=== PATIENT | male | born 1945 | race Caucasian/White ===

== ENCOUNTER → 2016-10-08 | Outpatient (CLI) | payer MEDICARE, OTHER ==
[~2016-10-08] MED LIST: BLOO1STR MC; BUDE10.2 IH; DUTA0.5C PO; INSU100V8 SQ; PHEN37.53 PO; PROVENTIL HFA6.7 GM IH; SILD100T PO; TEST1.25 TD; VALIUM10 MG PO; inhaler; metformin; pravastatin; valium; vitamin d
--- NOTE | 2016-10-08 09:51 | RAD ---
2 indication lung malignancy. Follow-up. Noncontrast imaging through the chest was performed and is compared to an exam one year ago. Imaging through the upper abdomen is unremarkable. Gastric lap band is noted. The mediastinum appears unremarkable and unchanged. Small opacity at the right lung apex, likely reflecting scar, is unchanged. Nonsolid parenchymal opacity in the right lower lobe persists and appears slightly larger than on the previous exam. It also appears larger when compared to an examination in 2012. Slowly growing adenocarcinoma is not excluded. IMPRESSION: Nonsolid parenchymal opacity in the right lower lobe persists and appears slightly larger than on previous exams. A slow-growing neoplasm is not excluded. PQRS Compliance Statement: One or more of the following individualized dose reduction techniques were utilized for this examination: 1. Automated exposure control 2. Adjustment of the mA and/or kV according to patient size 3. Use of iterative reconstruction technique
== END | disposition home or self-care (01) ==
LOC: CT 11:39
PROVIDERS: ATTEND Internal Medicine Hematology & Oncology
DX: C34.31 Malignant neoplasm of lower lobe, right bronchus or lung (principal)
CPT/HCPCS: 71250

== ENCOUNTER 2016-11-03 06:47 | Outpatient (CLI) | payer MEDICARE, OTHER ==
[~2016-11-03] VITALS: Ht 172.7 cm; Wt 104.3 kg
[2016-11-03] VITALS (12 sets, daily range): BP systolic 110–141; BP diastolic 48–77
[2016-11-03] MEDS ORDERED: SILD20TA2 PO (07:14)
[2016-11-03] MEDS ORDERED: ASPI81TA2 PO (07:14)
[2016-11-03] MEDS ORDERED: INSU100C4 SQ (07:14)
[2016-11-03] MEDS ORDERED: BUDE10.2 IH (07:14)
[2016-11-03] MEDS ORDERED: LISI-338 PO (07:14)
[2016-11-03] MEDS ORDERED: PRAV80TA2 PO (07:14)
[2016-11-03] MEDS ORDERED: METF-620 PO (07:14)
[2016-11-03] MEDS ORDERED: TERA5CAP3 PO (07:14)
[2016-11-03] MEDS ORDERED: DIAZEPAM10 MG PO (07:14)
[2016-11-03 07:42] LABS: BASO # 0.1 x10^3/uL (0.0-0.2); BASO % 1 % (0-3); EOS % 3 % (0-3); HEMATOCRIT 36.5 % (39.0-53.0); HEMOGLOBIN 12.2 g/dL (13.0-17.5); LYMPH # 2.1 x10^3/uL (1.0-4.8); LYMPH % 31 % (24-48); MEAN CORPUSCULAR HEMOGLOBIN 31 pg (25-35); MEAN CORPUSCULAR HGB CONC 34 g/dL (31-37); MEAN CORPUSCULAR VOLUME 91 fL (79-100); MONO % 9 % (0-9); NEUT % 56 % (31-73); PLATELET COUNT 170 x10^3/uL (140-400); RED BLOOD COUNT 3.99 x10^6/uL (4.30-5.70); RED CELL DISTRIBUTION WIDTH 13.9 % (11.5-14.5); WHITE BLOOD COUNT 6.8 x10^3/uL (4.0-11.0)
[2016-11-03 07:46] LABS: PROTHROMBIN TIME PATIENT 12.4 SEC (11.7-14.0)
[2016-11-03] MEDS ORDERED: LIDOCAINE 1% / SOD BICARB 8.4% 20 ML VIAL. IJ ONE ×2 (08:03→08:45)
[2016-11-03] MEDS ORDERED: MIDAZOLAM HCL/PF 2 MG/2 ML VIAL. ONE (08:35)
[2016-11-03] MEDS ORDERED: fentaNYL PF VIAL 100 MCG/2 ML VIAL ONE (08:35)
[2016-11-03] MEDS ORDERED: fentaNYL PF VIAL 100 MCG/2 ML VIAL IV ONE (08:45)
[2016-11-03] MEDS ORDERED: MIDAZOLAM HCL/PF 2 MG/2 ML VIAL. IV ONE (08:45)
--- NOTE | 2016-11-03 09:19 | PDOC ---
MODERATE SEDATION ASSESSMENT RISKS/ALTERNATIVES Risks/Alternatives Risks and alternatives of this type of sedation and procedure discussed with: RISK/ALTERNATIVES: Patient H & P ON CHART H & P H & P on chart and reviewed for co-morbid conditions and appropriate labs. H&P ON CHART: Yes STATUS PREG STATUS ASSESSED: N/A MEDS/ALLERGIES REVIEWED Meds/Allergies Reviewed Medications and Allergies including time and route of recently administered narcotics and sedatives. MEDS/ALLERGIES REVIEWED: Yes ASA RATING ASA RATING: II AIRWAY ASSESSMENT Airway Assessment Airway patency, oral function limitations, presence of caps, crowns, dentures, partials, and ability to extend neck assessed. AIRWAY ASSESSMENT: Yes MALLAMPATI SCORE MALLAMPATI SCORE: II PRE-SEDATION ASSESSMENT PRE-SEDATION ASSESSMENT: Yes GREG ANDRADE MD November 03, 2016 09:19
--- NOTE | 2016-11-03 09:21 | PDOC1 ---
History and Physical Date of Procedure Date of Admission 11/03/[address] guided right lung bx Indication Indication 71 YO male previous smoker, s/p left lower lobectomy for lung cancer in 2007. Now with very slowly growing right lower lobe ground glass opacity, raising ? of bronchoalveolar carcinoma. Past Medical History Past Medical History See Nursing Pre Procedure PMH Past Surgical History Past Surgical History See Nursing Pre procedure PSH Current Medications Current Medications Current Medications Lidocaine/Sodium Bicarbonate (Buffered Lidocaine 1%) 20 ml STK-MED ONCE IJ ; Start 11/03/16 at 08:03; Stop 11/03/16 at 08:04; Status DC Fentanyl Citrate (Fentanyl 2ml Vial) 100 mcg STK-MED ONCE .ROUTE ; Start at 08:35; Stop 11/03/16 at 08:36; Status DC Midazolam HCl (Versed) 2 mg STK-MED ONCE .ROUTE ; Start 11/03/16 at 08:35; Stop 11/03/16 at 08:36; Status DC Lidocaine/Sodium Bicarbonate (Buffered Lidocaine 1%) 20 ml 1X ONCE IJ Last administered on 11/03/16 09:07; Start 11/03/16 at 08:45; Stop 11/03/16 at 08:46 ; Status DC Midazolam HCl (Versed) 2 mg 1X ONCE IV Last administered on 11/03/16 09:07; Start 11/03/16 at 08:45; Stop 11/03/16 at 08:46; Status DC Fentanyl Citrate (Fentanyl 2ml Vial) 100 mcg 1X ONCE IV Last administered on 09:07; Start 11/03/16 at 08:45; Stop 11/03/16 at 08:46; Status DC Active Scripts Active Reported Novolog (Insulin Aspart) 100 Unit/1 Ml Cartridge 20 Unit SQ TID Sildenafil (Sildenafil Citrate) 20 Mg Tablet 20 Mg PO TID Diazepam 10 Mg Tablet 10 Mg PO DAILY Lisinopril 5 Mg Tablet 1 Tab PO DAILY Aspirin 81 Mg Tab.chew 1 Tab PO DAILY Metformin Hcl 1,000 Mg Tablet 1,000 Mg PO DAILYWBKFT Terazosin Hcl 5 Mg Capsule 1 Cap PO QHS Symbicort 160-4.5 Mcg Inhaler (Budesonide/Formoterol Fumarate) 10.2 Gm Hfa.aer.ad 2 Puff IH BID Pravastatin Sodium 80 Mg Tablet 1 Tab PO DAILY Phentermine Hcl 37.5 Mg Capsule 1 Cap PO DAILYWBKFT Valium (Diazepam) 10 Mg Tablet 1 Tab PO QHS Contour Next (Blood Sugar Diagnostic) 1 Each Strip 1 Each MC Androgel (Testosterone) 1.25 Gm Gel.packet 1.25 Gm TD Lantus (Insulin Glargine,Hum.rec.anlog) 100 Unit/1 Ml Vial 135 Unit SQ BID [vitamin d] [metformin] DAILY Allergies Allergies: Coded Allergies: simvastatin (Verified Adverse Reaction, Intermediate, Nausea, 09/18/13) Physical Exam Vital Signs Vital Signs Date Time Temp Pulse Resp B/P (MAP) Pulse Ox O2 Delivery O2 Flow Rate FiO2 11/03/16 09:16 62 16 95 Room Air 11/03/16 09:00 2.0 11/03/16 07:45 97.6 141/67 (91) 97.6 Lungs: Clear to auscultation Heart: Regular rate Psych/Mental Status: Mental status NL Diagnostic Data/Imaging Images PMC CT chest studies from 10/13/15 and 10/08/16 reviewed. Slowly growing right lower lobe GGO confirmed. Assessment Assessment 71 YO male prior smoker, who is s/p left lower lobectomy for lung cancer in 2007. Now with slowly growing right lower lobe GGO, raising ? of JERAMIE. Problems: Plan Plan CT guided right lung biopsy GREG ANDRADE MD November 03, 2016 09:20
--- NOTE | 2016-11-03 09:35 | PDOC ---
Exam Vp Product Management Vp Product Management Girish Analytics Analyst Analytics Analyst B Cates Pre-Procedure Diagnosis Pre-Procedure Diagnosis 71 YO male previous smoker, who is s/p left lower lobectomy for lung cancer in 2007. Now with very slowly growing right lower lobe GGO, raising ? of JERAMIE. Post-Procedure Diagnosis Post-Procedure Diagnosis Same Procedure Performed Procedure Performed CT guided bx rt lower lobe GGO Type of Anesthesia Type of Anesthesia Local + Mod sedation Estimated Blood Loss EBL: Trace Specimens Specimans 3 small 18G core bx fragments to path in formalin Condition of Patient Condition of Patient Stable. Completion CT images revealed tiny asymptomatic immediate post bx Ptx. Disposition Disposition From CT/IR to CVOBS. 1 hr post bx Insp/exp CXR requested to confirm or exclude progression of Ptx. Home post 2 hr recovery from CVOBS if no Ptx progression or other problem. Chest tube insertion with admission if Ptx progresses. F/U with Dr Porter. Full report to follow. GREG ANDRADE MD November 03, 2016 09:35
--- NOTE | 2016-11-03 10:49 | RAD ---
Indication status post right lung biopsy. Inspiratory and expiratory films of the chest were obtained approximately 1 hour following a right lung biopsy. Note is made that the CT demonstrated a minute right pneumothorax. There is mild cardiomegaly. There is no congestive heart failure. No appreciable right pneumothorax is seen on plain film. IMPRESSION: No appreciable right pneumothorax apparent on plain films.
--- NOTE | 2016-11-04 06:20 | RAD ---
CT-guided right lung biopsy Indication: 71-year-old male with history of left lower lobectomy for lung cancer. He has a very slowly growing groundglass opacity within right lower lobe, raising the question of bronchoalveolar carcinoma. CT-guided right lung biopsy has been requested by pulmonary. Anesthesia: 36 minutes moderate sedation was provided utilizing a total of 2 mg Versed and 50 mcg fentanyl, IV. The patient was appropriately monitored by a qualified independent observer throughout the time of moderate sedation. Consent: The procedure was explained in its entirety to the patient and/or the patient's designated volunteer patient representative by a member of the treatment team. This included a discussion of risks and benefits and acceptable alternatives to the procedure, as well as expected consequences of no treatment at all. Discussion of risks included, but was not limited to, those that are most frequent and those that are rare, but possibly severe or life-threatening, as well as the possibility of unforeseen complications. Procedure: Informed consent was obtained from the patient. He was placed prone on the CT scanner. Preliminary noncontrast CT images confirmed the presence of a poorly defined right lower lobe groundglass opacity, which has shown slow interval increase in size 10/13/2015. A right posterior skin site suitable for CT-guided lung biopsy was selected and marked. That area was prepped and draped in the usual sterile fashion. Moderate sedation was provided with IV Versed and fentanyl. Using aseptic technique, local anesthesia, and CT guidance, a 17-gauge guide needle was successfully advanced into posterior aspect of the right lower lobe groundglass opacity. A total of 3 18-gauge core biopsies were attempted. The biopsies were productive of only small fragments of tissue, which were submitted in formalin to pathology. The biopsy guide needle was removed and a sterile dressing was applied. Patient tolerated the procedure well. However, completion CT images revealed a very tiny right pneumothorax. A 1 hour post biopsy aspiration/expiration chest x-ray will be obtained in CV observation to confirm or exclude progression in pneumothorax, prior to patient discharge versus chest tube insertion with admission. Impression: 1. CT-guided right lung biopsy was productive of only small fragments of tissue, which may prove nondiagnostic. 2. Tiny immediate postbiopsy pneumothorax. 1 hour postbiopsy inspiration/expiration chest x-ray was requested in CV observation during patient recovery. PQRS Compliance Statement: One or more of the following individualized dose reduction techniques was utilized for this procedure: 1. Automated exposure control. 2. Adjustment of MA and/or KV according to patient size. 3. Iterative reconstruction technique.
--- NOTE | 2016-11-08 17:31 | PATHOLOGY ---
PATHOLOGY REPORT * * * * * * * * FINAL DIAGNOSIS: Lung tissue, right lung CT-guided biopsy: - Pulmonary scleroelastotic scar with focal atypical mucinous epithelial proliferation. See comment. COMMENT: Sections of the right lung CT-guided biopsy reveal several segments of lung tissue. The lung tissue shows extensive interstitial sclerosis and elastosis with focal chronic inflammation. There are several small foci of atypical mucinous epithelial proliferation having an acinar and lepidic architecture. This atypical epithelial proliferation consists of mucinous columnar epithelial cells having basally situated, mildly enlarged hyperchromatic nuclei. The differential diagnosis includes atypical adenomatous hyperplasia and mucinous adenocarcinoma with lepidic growth pattern. A definitive diagnosis cannot be rendered based on this small sampling of a larger lesion. Correlate with clinical and radiographic findings. The case is also examined by Dr. Titus and Dr. Shaikh, both of whom concur with the diagnosis. (JPM::csd; d/t: 11/05/16) REPORT ELECTRONICALLY SIGNED BY: Babatunde Corcoran M.D. DATE/TIME: 11/08/2016 17:30 * * * * * * * * GROSS PATHOLOGY: Received in formalin labeled "Jason Storey, right lung biopsy," are three distinct needle cores of rhodes soft tissue ranging from 0.7 to 1.3 cm in length, which are submitted entirely in cassette A1. (CAA; 11/04/2016) INITIAL CPT CODE(S): A; 88111 Professional services performed [place] [address] Technical services performed by [email or web address] at [address] [place] [address], [facility] [address], [place] [address]. SPECIMEN(S) RECEIVED: A.Right lung biopsy CLINICAL HISTORY: Slowly growing right lung GGO, history of left lung cancer s/p lobectomy, ? JERAMIE PATIENT: JASON STOREY /AGE: 801/23/1945 (Age: 71) PATIENT #: [id number] ALT CASE #: SPECIMEN COLLECTION DATE: 11/03/2016 SPECIMEN RECEIVED DATE: 11/03/2016 [facility] - [id number] [place] [address] - PHONE: [phone] * * * END OF REPORT * * *
== END 2016-11-03 11:16 | disposition home or self-care (01) ==
LOC: INTRAD 06:47
PROVIDERS: ATTEND Internal Medicine Critical Care Medicine
DX: J84.10 Pulmonary fibrosis, unspecified (principal); J44.9 Chronic obstructive pulmonary disease, unspecified; Z85.118 Personal history of other malignant neoplasm of bronchus and lung; I51.7 Cardiomegaly; E78.00 Pure hypercholesterolemia, unspecified; E11.9 Type 2 diabetes mellitus without complications; Z88.8 Allergy status to other drugs, medicaments and biological substances
CPT/HCPCS: 32405; 36415; 71035; 77012; 85027; 85610; 88305; C1892; J2250; J3010

== ENCOUNTER → 2016-11-08 | Outpatient (CLI) | payer MEDICARE, OTHER ==
[2016-11-03 10:46] VITALS: BP 113/69
[~2016-11-08] MED LIST changes: +ASPI81TA2 PO; +DIAZEPAM10 MG PO; +INSU100C4 SQ; +LISI-338 PO; +METF-620 PO; +PRAV80TA2 PO; +SILD20TA2 PO; +TERA5CAP3 PO
--- NOTE | 2016-11-09 12:50 | RESP ---
DATE OF SERVICE: The patient underwent full pulmonary function testing dated 11/08/2016. The FEV1 to FVC ratio was 100%, FEV1 was 58% predicted at 1.73 liters, FVC was 58% predicted at 2.35 liters. There was no significant bronchodilator response. Total lung capacity was 116% of predicted at 7.54 liters. Diffusion capacity was slightly decreased. IMPRESSION: 1. No significant evidence of obstructive or restrictive disorder. 2. Slight decrease in diffusion capacity. 3. No significant bronchodilator effect. AZALEA FLOYD MD DR: JESSE/eren JOB#: [id number] / [id number] ABDON Skinner MD, AMAN MD
== END ==
LOC: PF 11:02
PROVIDERS: ATTEND Internal Medicine Critical Care Medicine
DX: R94.2 Abnormal results of pulmonary function studies (principal)
CPT/HCPCS: 94060; 94729

== ENCOUNTER → 2016-11-25 | Outpatient (CLI) | payer MEDICARE, OTHER ==
[2016-11-03 10:46] VITALS: BP 113/69
[~2016-11-25] MED LIST changes: +ASPI-630 PO; -ASPI81TA2 PO
--- NOTE | 2016-11-25 12:41 | CARD ---
APPROVED REPORT EXAM: Two-dimensional and M-mode echocardiogram with Doppler and color Doppler. Other Information Quality : Average Rhythm : NSR INDICATION Pre-Op 2D DIMENSIONS Left Atrium(2D)3.9 (1.6-4.0cm)IVSd1.3 (0.7-1.1cm) Aortic Root(2D)3.2 (2.0-3.7cm)LVDd3.2 (3.9-5.9cm) LVOT Diameter2.1 (1.8-2.4cm)PWd1.3 (0.7-1.1cm) LVDs2.4 (2.5-4.0cm)FS (%) 25.6 % SV21.1 mlLVEF(%)51.8 (>50%) Aortic Valve AoV Peak Marshall.143.6cm/sAoV VTI26.0cm AO Peak GR.8.2mmHgLVOT Peak Marshall.136.2cm/s LVOT VTI 23.53cmAO Mean GR.5mmHg TERESA (VMAX)3.36ds5ZNZ (VTI)3.24cm2 Mitral Valve MV E Pxjcjtek37.5cm/sMV DECEL [id number] MV A Rhwcdlgv168.7cm/sMV E Mean Gr.3mmHg MV ISH79ahZ/A Ratio0.7 MV A Tavbtbxr722tyESQ (PHT)3.98cm2 TDI E/Lateral E'9.8E/Medial E'12.9 Pulmonary Valve PV Peak Oempvzxm285.9cm/sPV Peak Grad.9mmHg RVOT VTI18.6cm Tricuspid Valve TR P. Dlehtsps220ni/sRAP PAMBFDVQ7rhNk TR Peak Gr.95taXiTIYY09gnTx LEFT VENTRICLE The left ventricle is normal size. There is borderline to mild concentric left ventricular hypertroph y. Left ventricle systolic function is normal. The Ejection Fraction is 55%. There is normal LV segme ntal wall motion. Tissue Doppler imaging reveals mild left ventricular diastolic dysfunction. Transmi tral Doppler flow pattern is Grade I-abnormal relaxation pattern. There is no ventricular septal defe ct visualized. RIGHT VENTRICLE The right ventricle is normal size. The right ventricular systolic function is normal. ATRIA The left atrium size is normal. The right atrium size is normal. The interatrial septum is intact wit h no evidence for an atrial septal defect or patent foramen ovale as noted on 2-D or Doppler imaging. AORTIC VALVE The aortic valve is mildly calcified. The aortic valve is trileaflet. Doppler and Color Flow revealed no significant aortic regurgitation. There is no significant aortic valvular stenosis. MITRAL VALVE Mitral annular calcification is borderline. There is no mitral valve stenosis. Doppler and Color Flow revealed no mitral valve regurgitation noted. TRICUSPID VALVE The tricuspid valve is normal in structure and function. Doppler and Color Flow revealed trace tricus pid regurgitation. The PA pressure was estimated at 32 mmHg. There is no tricuspid valve stenosis. PULMONIC VALVE The pulmonic valve is not well visualized. Doppler and Color Flow revealed no pulmonic valvular regur gitation. There is no pulmonic valvular stenosis. GREAT VESSELS The aortic root is normal in size. The IVC is normal in size and collapses >50% with inspiration. PERICARDIAL EFFUSION There is no evidence of significant pericardial effusion. Critical Notification Critical Value: No <Conclusion> Left ventricle systolic function is normal. The Ejection Fraction is 55%. Transmitral Doppler flow pattern is Grade I-abnormal relaxation pattern. Doppler and Color Flow revealed trace tricuspid regurgitation. The PA pressure was estimated at 32 mmHg. There is no evidence of significant pericardial effusion.
== END | disposition home or self-care (01) ==
LOC: ECHO 10:49
PROVIDERS: ATTEND Thoracic Surgery (Cardiothoracic Vascular Surgery)
DX: Z01.818 Encounter for other preprocedural examination (principal); I07.1 Rheumatic tricuspid insufficiency; R91.8 Other nonspecific abnormal finding of lung field
CPT/HCPCS: 93306

== ENCOUNTER → 2017-01-19 | Outpatient (CLI) | payer MEDICARE, OTHER ==
[2016-11-03 10:46] VITALS: BP 113/69
--- NOTE | 2017-01-19 10:20 | RAD ---
Chest radiograph 01/19/2017 at 1001 hours Indication: History of left lower lobe neoplasm. Comparison: CT chest 10/08/2016, chest radiograph 11/03/2016 Technique: Frontal and lateral views of the chest are provided. Findings: Cardiomediastinal silhouette is mildly shifted to the left, stable. There is volume loss in the left lung. Is normal aeration of the left upper lobe. Left diaphragm is mildly elevated, stable. There is minimal atelectasis and/or scarring at the left lung base. Strandy density in the right midlung may represent atelectasis. There is suggestion of minimal fluid or pleural thickening along the right lateral lung. No significant osseous abnormalities identified. No pulmonary vascular congestion or pneumothorax. Impression: 1. Volume loss in the left lung is likely postsurgical. There is associated elevation of the left hemidiaphragm and shift of mediastinum to the left, stable. 2. Strandy density in the right midlung which may represent atelectasis and/or scarring with suggestion of either pleural thickening or trace loculated fluid along the right lateral chest wall.
--- NOTE | 2017-01-19 15:35 | RAD ---
Ventilation/perfusion lung scan, 01/19/2017: History: Lung mass, preop evaluation The ventilation study was performed utilizing 27 mCi of xenon-133. There is decreased ventilation of the left lung. There is good washout of the xenon from both lungs. Perfusion imaging was performed utilizing 5.5 mCi of technetium 99m MAA. A similar pattern of activity is present in the lungs. No unmatched perfusion defects are seen. Quantitative analysis of the perfusion portion of the study demonstrates approximately 23% of the overall perfusion occurs on the left and 77% on the right. IMPRESSION: 1. Decreased ventilation and perfusion in the left lung apparently secondary to a previous partial left pneumonectomy. 2. No unmatched perfusion defects are seen. 3. Quantitative perfusion analysis demonstrates approximately 23% of the overall perfusion occurring on the left and 77% on the right.
== END | disposition home or self-care (01) ==
LOC: NM 09:24
PROVIDERS: ATTEND Thoracic Surgery (Cardiothoracic Vascular Surgery)
DX: Z01.818 Encounter for other preprocedural examination (principal); C34.32 Malignant neoplasm of lower lobe, left bronchus or lung
CPT/HCPCS: 71020; 78582; 96374; A9540; A9558

== ENCOUNTER → 2017-11-21 | Outpatient (CLI) | payer MEDICARE, OTHER ==
[2017-11-21] MEDS: GADOBUTROL 10 MMOL/10 ML VIAL IV (08:52)
== END | disposition home or self-care (01) ==
LOC: KCIC MRI 08:03
DX: K83.1 Obstruction of bile duct (principal); N28.1 Cyst of kidney, acquired
CPT/HCPCS: 74182; A9585

== ENCOUNTER 2018-01-09 08:24 | Outpatient (CLI) | payer MEDICARE, OTHER ==
[2018-01-09 09:09] LABS: ADD MAN DIFF? NO
[2018-01-09 09:11] LABS: BASO # 0.1 x10^3/uL (0.0-0.2); BASO % 1 % (0-3); EOS # 0.2 x10^3/uL (0.0-0.7); EOS % 3 % (0-3); HEMATOCRIT 39.1 % (39.0-53.0); HEMOGLOBIN 13.5 g/dL (13.0-17.5); LYMPH # 2.6 x10^3/uL (1.0-4.8); LYMPH % 34 % (24-48); MEAN CORPUSCULAR HEMOGLOBIN 32 pg (25-35); MEAN CORPUSCULAR HGB CONC 35 g/dL (31-37); MEAN CORPUSCULAR VOLUME 92 fL (79-100); MONO # 0.6 x10^3/uL (0.0-1.1); MONO % 8 % (0-9); NEUT # 4.2 x10^3uL (1.8-7.7); NEUT % 54 % (31-73); PLATELET COUNT 204 x10^3/uL (140-400); RED BLOOD COUNT 4.25 x10^6/uL (4.30-5.70); RED CELL DISTRIBUTION WIDTH 13.9 % (11.5-14.5); WHITE BLOOD COUNT 7.8 x10^3/uL (4.0-11.0)
[2018-01-09 09:21] LABS: INR 0.9 (0.8-1.1); PROTHROMBIN TIME PATIENT 12.1 SEC (11.7-14.0)
[2018-01-09] MEDS ORDERED: HEPARIN PF 500 UNIT/5 ML DISP.SYRIN. IV (09:45)
[2018-01-09] MEDS ORDERED: LIDOCAINE 1%/EPI 1:100,000 20 ML VIAL. (09:45)
[2018-01-09] MEDS ORDERED: fentaNYL PF VIAL 100 MCG/2 ML VIAL (09:47)
[2018-01-09] MEDS ORDERED: MIDAZOLAM HCL/PF 2 MG/2 ML VIAL. (09:47)
[2018-01-09] MEDS: LIDOCAINE 1%/EPI 1:100,000 20 ML VIAL. IJ (10:25)
[2018-01-09] MEDS: fentaNYL PF VIAL 100 MCG/2 ML VIAL IV (10:26)
[2018-01-09] MEDS: MIDAZOLAM HCL/PF 2 MG/2 ML VIAL. IV (10:26)
[2018-01-09] MEDS: HEPARIN PF 500 UNIT/5 ML DISP.SYRIN. IV (10:27)
[2018-01-09] MEDS ORDERED: ceFAZolin 2GM PREMIX 2 GM/50 ML BAG IV (11:00)
== END 2018-01-09 13:15 | disposition home or self-care (01) ==
LOC: INTRAD 08:24
DX: C25.9 Malignant neoplasm of pancreas, unspecified (principal); E78.00 Pure hypercholesterolemia, unspecified; I10 Essential (primary) hypertension; J44.9 Chronic obstructive pulmonary disease, unspecified; Z85.118 Personal history of other malignant neoplasm of bronchus and lung; E11.9 Type 2 diabetes mellitus without complications; Z79.4 Long term (current) use of insulin; Z79.899 Other long term (current) drug therapy; Z88.8 Allergy status to other drugs, medicaments and biological substances; Z98.890 Other specified postprocedural states; Z87.891 Personal history of nicotine dependence
CPT/HCPCS: 36415; 36561; 76937; 77001; 85025; 85610; 99152; 99153; A4215; C1751; C1788; C1892; J0690; J2250; J3010; J3490

== ENCOUNTER → 2018-03-28 | Outpatient (CLI) | payer MEDICARE, OTHER ==
[2018-01-09 12:30] VITALS: BP 108/54
[~2018-03-28] MED LIST changes: +INSU100I13 SQ; +IOHEXOL 240 MG/ML 50ML VIAL. PO ONE; +IOHEXOL 300 MG/ML 100ML VIAL. IV ONE; -METF-620 PO; +METF10007 PO; +METF500T16 PO; +METF500T9 PO; +METO-239 PO
--- NOTE | 2018-03-28 14:44 | RAD ---
EXAM: CT Chest, Abdomen and Pelvis with IV contrast CLINICAL HISTORY: PANCREATIC CANCER staging COMPARISON: 04/06/2017 TECHNIQUE: Helical CT of the chest, abdomen and pelvis was performed following the administration of intravenous contrast. Oral contrast was administered. Axial, coronal and sagittal reformatted images were generated. ---PQRS compliance statement - One or more of the following individualized dose reduction techniques were utilized for this study: 1. Automated exposure control 2. Adjustment of the mA and/or kV according to patient size 3. Use of iterative reconstruction technique--- FINDINGS: Chest: The heart is not enlarged. Coronary artery calcifications are seen. No pericardial effusion. Right Port-A-Cath tip terminates within the distal SVC/proximal right atrium. No mediastinal or hilar lymphadenopathy. No axillary lymphadenopathy. No pleural effusion or pneumothorax. Groundglass/solid opacity in the right lower lobe measures 3.7 x 2.4 cm, grossly stable when compared to prior CT 04/06/2017 when it measured 3.8 x 2.3 cm. This is also seen on prior CT from 09/20/2012. A right upper lobe groundglass opacity is also stable to 04/06/2017. Platelike opacities left lower lobe likely subsegmental atelectasis. No new suspicious lung nodule or mass is identified. Abdomen and Pelvis: No focal liver lesion. There has been a cholecystectomy. A stent is seen within the common bile duct. Intra and extrahepatic biliary ductal gas is seen. No focal splenic lesion. Adrenal glands are normal. The pancreas is diffusely atrophic likely from known pancreatic mass which is not well delineated on today's exam but may be a focal hypoattenuating lesion within the uncinate process. Minimal associated fat infiltration about the pancreatic head/uncinate process which does not completely envelop the celiac, SMA or portal vein. Symmetric nephrograms. Multiple renal cystic lesions are seen bilaterally are profiled on prior MRI, however it insurance representative left lower pole renal cystic lesion measures 1.9 cm. No hydronephrosis or hydroureter. Appendix is normal. Moderate colonic stool content. Oral contrast material is seen to the level of the descending colon. Colonic diverticula are seen, most prominent within the the sigmoid colon. Associated fat infiltration is seen suspicious for acute diverticulitis. Gastric lap band is seen. No abdominal or pelvic lymphadenopathy by size criteria although a few mildly prominent retroperitoneal and mesenteric lymph nodes are seen, recommend close attention on follow-up. No abdominal or pelvic ascites. Bones: No definite aggressive osseous lesion is seen. Multilevel degenerative changes of the spine including Schmorl's nodes are seen. IMPRESSION: 1. Post ERCP changes with stent within the common bile duct and associated resultant pneumobilia. 2. Hypoattenuating lesion within the pancreas may represent the known pancreatic malignancy. Minimal associated fat infiltration without full encasement of the associated vessels. 3. No thoracic, abdominal or pelvic lymphadenopathy by size criteria, although a few mildly prominent retroperitoneal and portacaval lymph nodes are seen. 4. Parenchymal Opacities within the lungs are grossly stable to 04/06/2017. 5. Fat infiltration is seen about colonic diverticula within the sigmoid colon which may be seen with acute diverticulitis. This can be correlated with patient's symptoms. Electronically signed by: Mekhi Quigley MD (03/28/2018 2:41 PM) [id number]
== END | disposition home or self-care (01) ==
LOC: CT 09:03
PROVIDERS: ATTEND Internal Medicine Hematology & Oncology
DX: C25.0 Malignant neoplasm of head of pancreas (principal); N28.89 Other specified disorders of kidney and ureter; K57.30 Diverticulosis of large intestine without perforation or abscess without bleeding; Z90.49 Acquired absence of other specified parts of digestive tract
CPT/HCPCS: 71260; 74177; Q9966; Q9967

== ENCOUNTER → 2018-10-24 | Outpatient (CLI) | payer MEDICARE, OTHER ==
[2018-01-09 12:30] VITALS: BP 108/54
[~2018-10-24] MED LIST changes: +ALBU2.5V8 IH; +HEPARIN PF 500 UNIT/5 ML DISP.SYRIN. IV ONE; -PROVENTIL HFA6.7 GM IH
--- NOTE | 2018-10-24 15:06 | RAD ---
CT of the chest, abdomen and pelvis with contrast, 10/24/2018: History: Pancreatic cancer, follow-up Multidetector CT imaging was performed following oral and IV administration of contrast. Comparison is made to a study from 03/28/2018. A right Port-A-Cath extends to the level of the atriocaval junction. There is calcific plaquing of the thoracic aorta without evidence of aneurysm. Mild coronary artery calcifications are present. No mediastinal adenopathy is seen. There is a calcified granuloma in the right lower lobe. There are mild scattered parenchymal scars. A rib defect is present posteriorly on the left compatible with with the history of a previous left lobectomy. There is an ongoing streaky/branching parenchymal opacity in the superior aspect of the right lower lobe similar to that seen on the previous exam. This probably represents scarring and/or chronic atelectasis. No new pulmonary abnormality is seen. There is no evidence of pleural fluid. The gallbladder is surgically absent. No hepatic mass is evident. There has apparently been an interval Whipple's type surgery with resection of the pancreatic head. The remaining pancreatic body and tail are unremarkable. There are unopacified bowel loops at the jimmy hepatis and proximal duodenal level. There is mild streaky increased density in central mesenteric fat compatible with edema or scarring. There are also several nonspecific calcifications. No definite adenopathy or mass is seen. The spleen is at the upper limits of normal in size measuring 14 cm in craniocaudad extent. There is bilateral renal cortical scarring. Several small cysts are present in the lower pole of the left kidney. The kidneys show no evidence of obstruction. No adrenal abnormality is detected. Aortoiliac calcific plaquing is present no abdominal or pelvic adenopathy is detected. The prostate gland is at the upper limits of normal in size. There is a moderate amount stool scattered throughout the colon. The bowel loops are not dilated. A lap band type device remains in place related to the proximal stomach. No free fluid or free air is evident in the abdomen or pelvis. IMPRESSION: 1. Interval Whipple's surgery with mild streaky mesenteric scarring or inflammation. 2. No definite evidence of tumor recurrence. 3. Stable discoid right lower lobe opacities compatible with scarring and/or chronic atelectasis. 4. Additional miscellaneous chronic findings as described above. PQRS Compliance Statement: One or more of the following individualized dose reduction techniques were utilized for this examination: 1. Automated exposure control 2. Adjustment of the mA and/or kV according to patient size 3. Use of iterative reconstruction technique
== END | disposition home or self-care (01) ==
LOC: CT 11:08
PROVIDERS: ATTEND Internal Medicine Hematology & Oncology
DX: C25.0 Malignant neoplasm of head of pancreas (principal); I25.10 Atherosclerotic heart disease of native coronary artery without angina pectoris; J84.10 Pulmonary fibrosis, unspecified; R91.8 Other nonspecific abnormal finding of lung field; Z90.2 Acquired absence of lung [part of]; Z88.8 Allergy status to other drugs, medicaments and biological substances
CPT/HCPCS: 71260; 74177; Q9966; Q9967

== ENCOUNTER → 2019-02-20 | Outpatient (CLI) | payer MEDICARE, OTHER ==
[2018-01-09 12:30] VITALS: BP 108/54
[~2019-02-20] MED LIST changes: -HEPARIN PF 500 UNIT/5 ML DISP.SYRIN. IV ONE; +METF500T11 PO; -METF500T9 PO
--- NOTE | 2019-02-20 17:14 | RAD ---
CT scan of the chest, abdomen and pelvis with contrast 02/20/2019 CLINICAL HISTORY: Pancreatic cancer. TECHNIQUE: After the oral and intravenous administration of contrast, contiguous, 5 mm axial sections were obtained through the chest, abdomen and pelvis. 75 cc of Omnipaque 300 were administered intravenously during the examination. One or more of the following individualized dose reduction techniques were utilized for this study: 1. Automated exposure control. 2. Adjustment of the mA and/or kV according to patient size. 3. Use of iterative reconstruction technique. FINDINGS: Comparison study is dated 10/24/2018. A right internal jugular [id number] type catheter is unchanged in position. Atherosclerotic calcification of the thoracic aorta and its branches is noted. The thoracic aorta is tortuous but tapers normally. Scattered coronary artery calcifications are seen. The heart is normal in size. No hilar, mediastinal or axillary lymphadenopathy is noted. Increased density is seen within the retroareolar regions of both breasts consistent with gynecomastia, right greater than left. A 1 cm area of scarring is seen involving the right upper lobe, unchanged. An opacity with associated air bronchograms and adjacent areas of groundglass attenuation are seen involving the right lower lobe essentially unchanged. Subsegmental atelectasis is seen involving the left lower lobe. No new pulmonary mass or nodule is seen. No pneumothorax or pleural effusion is noted. A 5 mm rounded low-attenuation lesion is seen involving the dome of the liver. This is new since the previous examination and is concerning for a metastasis. No additional abnormality of the liver is seen. The spleen is mildly enlarged measuring 14.5 cm in length. The adrenal glands are within normal limits. Rounded low-attenuation lesions are seen involving both kidneys. These measure 5 mm to 1.8 cm in size. They likely represent cysts. Atrophy of the pancreas is again seen. Calcifications are seen scattered throughout the pancreas. Atherosclerotic calcification of the abdominal aorta and its branches is noted. Surgical clips are seen within the gallbladder fossa consistent with cholecystectomy. A 2 cm enlarged retroperitoneal lymph node is seen to the right of the abdominal aorta, unchanged. Patient is post lap band placement. There is no evidence of bowel obstruction. Air and stool seen throughout the colon. The appendix is well-visualized and is within normal limits. Images through pelvis demonstrate the urinary bladder distended with urine. A moderate amount stool seen within the rectum and sigmoid colon. No free fluid is seen. No pelvic or inguinal lymphadenopathy is noted. The osseous structures are unchanged. IMPRESSION: 5 mm low-attenuation lesion is seen involving the dome of the liver which is new since the previous examination. This is concerning for a hepatic metastasis. No additional new metastasis is seen. Electronically signed by: Teja Sauer MD (02/20/2019 5:11 PM) [id number]
== END | disposition home or self-care (01) ==
LOC: CT 09:42
PROVIDERS: ATTEND Internal Medicine Hematology & Oncology
DX: C25.0 Malignant neoplasm of head of pancreas (principal); J98.4 Other disorders of lung; J98.11 Atelectasis; K76.9 Liver disease, unspecified; I25.10 Atherosclerotic heart disease of native coronary artery without angina pectoris; I70.0 Atherosclerosis of aorta; I70.8 Atherosclerosis of other arteries; R16.1 Splenomegaly, not elsewhere classified; K86.89 Other specified diseases of pancreas; N28.9 Disorder of kidney and ureter, unspecified; R59.0 Localized enlarged lymph nodes; Z90.49 Acquired absence of other specified parts of digestive tract
CPT/HCPCS: 71260; 74177; Q9966; Q9967

== ENCOUNTER → 2019-04-18 | Outpatient (CLI) | payer MEDICARE, OTHER ==
[2018-01-09 12:30] VITALS: BP 108/54
[~2019-04-18] MED LIST changes: -ALBU2.5V8 IH; +CONTRAST GIVEN. MC PRN; +PROVENTIL HFA6.7 GM IH
--- NOTE | 2019-04-18 13:36 | RAD ---
Examination: CT CHEST ABD PELVIS W/CONTRAST History: Pancreatic cancer Comparison/Correlation: 02/20/2019 CT chest abdomen and pelvis with contrast Findings: Axial images of the chest, abdomen, and pelvis were obtained following IV and oral contrast. Sagittal and coronal reformatted images were provided. Right-sided infusion port catheter is present. Right apical scarring is unchanged. Scarring at the posterior right thoracic levels unchanged. No new infiltrates. No pleural effusion. No enlarged thoracic nodes. Gastric lap band noted. Small hiatal hernia. Minimal intrahepatic biliary gas is present. Minimal perihepatic ascites noted. Calcified granulomas involving the spleen. Gas within the common bile duct noted. Cholecystectomy noted. Spleen is unremarkable. Adrenal glands and right kidney are normal. Left renal lower pole cysts are present. Subtle low-attenuation hypoenhancing region along the hepatic dome on axial image 40 of series 2 is unchanged. No new liver lesion. Resection of the pancreatic head and neck again seen. No recurrent mass lesion. Mesenteric stranding or scarring again seen at the posterior upper abdomen. No enlarged abdominal lymph nodes. Diverticulosis of the colon is evident. Urinary bladder is unremarkable. Prostate gland measures up to 4.7 cm transverse. Bony structures are grossly unremarkable. Impression: No enlarged abdominal or pelvic lymph nodes in the interval. No evidence of recurrence. Previously described hepatic dome lesion is unchanged. PQRS Compliance Statement: One or more of the following individualized dose reduction techniques were utilized for this examination: 1. Automated exposure control 2. Adjustment of the mA and/or kV according to patient size 3. Use of iterative reconstruction technique Electronically signed by: Ronak Magdaleno MD (04/18/2019 1:33 PM) [facility]
== END | disposition home or self-care (01) ==
LOC: CT 09:23
PROVIDERS: ATTEND Internal Medicine Hematology & Oncology
DX: C25.0 Malignant neoplasm of head of pancreas (principal); K44.9 Diaphragmatic hernia without obstruction or gangrene; K57.30 Diverticulosis of large intestine without perforation or abscess without bleeding; R18.8 Other ascites; D73.89 Other diseases of spleen; N28.1 Cyst of kidney, acquired; Z88.8 Allergy status to other drugs, medicaments and biological substances; Z90.49 Acquired absence of other specified parts of digestive tract
CPT/HCPCS: 71260; 74177; Q9966; Q9967

== ENCOUNTER → 2019-07-12 | Outpatient (CLI) | payer MEDICARE, OTHER ==
[2018-01-09 12:30] VITALS: BP 108/54
[~2019-07-12] MED LIST changes: -CONTRAST GIVEN. MC PRN; +HEPARIN PF 500 UNIT/5 ML DISP.SYRIN. IVP ONE
--- NOTE | 2019-07-12 16:29 | RAD ---
CT of the chest, abdomen, and pelvis 07/12/2019 INDICATION: History of pancreatic cancer COMPARISON STUDY: CT of the chest, abdomen, and pelvis April 18, 2019 TECHNIQUE: Multidetector CT imaging of the chest, abdomen, and pelvis was performed following the administration of IV contrast. FINDINGS: Chest: Heart size is normal. No pericardial effusion is seen. Coronary calcification noted. Right internal jugular port remains well-positioned. No pathologically enlarged mediastinal adenopathy is identified. No pneumothorax, or pleural effusion is seen. Small linear density in the apical right upper lobe is unchanged. Somewhat nodular, and groundglass opacity in the right lower lobe is unchanged. Mild scarring in the lung bases similar. Partial obstruction of the right seventh rib similar. Areas of bony erosion within the scapula are similar. Abdomen and pelvis: Postoperative changes in the upper abdomen are again seen. A lap band device is in place, similar in configuration to prior study. The adrenal glands are normal. The spleen demonstrates changes of prior granulomatous disease but is otherwise unremarkable. Renal cysts are noted in the inferior left kidney. Perinephric stranding is noted. The kidneys are stable in appearance. Atrophic and calcific changes involving the body and tail the pancreas are similar. Postoperative changes following probable Whipple procedure are unchanged. The portal vein remains patent. Minimal pneumobilia is noted, not unexpected following this surgical changes. Barely detectable small hypoenhancing focus in the dome of the liver is unchanged. No other hepatic masses are seen. Mesenteric fat stranding in the upper abdomen is unchanged. Small calcified lesion with surrounding soft tissue density anterior to the abdominal aorta just below the level of the renal arteries is unchanged. There is no evidence of bowel obstruction. Mildly increased stool is noted in the distal colon. Appearance is nonspecific. No pneumoperitoneum is seen. No significant ascites is seen. IMPRESSION: 1. Stable appearance of the chest, abdomen and, and pelvis. No evidence of progressive recurrence or metastatic disease is identified. 2. Stable postsurgical changes as described. CT DOSING PQRS STATEMENT: One or more of the following individualized dose reduction techniques were utilized for this examination: 1. Automated exposure control 2. Adjustment of the mA and/or kV according to patient size 3. Use of iterative reconstruction technique Electronically signed by: Pardeep Dowell MD (07/12/2019 4:26 PM) [id number]
== END | disposition home or self-care (01) ==
LOC: CT 10:22
PROVIDERS: ATTEND Internal Medicine Hematology & Oncology
DX: C25.0 Malignant neoplasm of head of pancreas (principal); N28.1 Cyst of kidney, acquired
CPT/HCPCS: 71260; 74177; Q9966; Q9967